=== PATIENT | female | born 1945 | race Caucasian/White ===

== ENCOUNTER 2016-10-04 12:42 | Observation (INO) | payer MEDICARE ==
[~2016-10-04] VITALS: Ht 152.4 cm; Wt 64.0 kg
[~2016-10-04 12:42] MED LIST: ALBUTEROL SUL0.083 % IN; ALPRAZOLAM1 MG PO; ASPIRIN EC81 MG PO; BACTRIM DS1 TAB PO; BENADRYL25 M1 PO; BENADRYL25 MG PO; CEPHALEXIN500 MG PO; CIPROFLOXACN500 MG PO; COMBIVENT RESPIMAT IN; DUONEB IN; ESTRACE0.5 MG PO; ESTRACE1 MG PO; FLEXERIL5 M1 PO; IMDUR60 MG PO; IMODIUM2 MG PO; IPRATROPIU0.5 MG/3 M NEB; ISOSORB MONO120 MG PO; ISOSORB MONO30 MG PO; ISOSORB MONO60 M1 PO; LACTATED RING1000 ML; LEVAQUIN750 MG PO; LEVOTHYROXIN100 MC1 PO; LEVOTHYROXIN75 MCG PO; LOVASTATIN10 M1 PO; LOVENOX100 MG/1 M SC; MEDDOSEPAK PO; NITROLINGUAL SPRAY D MT; OXY1; OXYCODONE15 MG PO; PREDNISONE10 MG PO; PROAIR HFA IN; RANITIDINE150 M1 PO; ROBITUSSIN AC10 ML PO; SIMVASTATIN20 MG PO; SYMBICORT1 AE1 IN; SYNTHROID100 MCG PO; SYNTHROID125 MCG PO; WARFARIN2.5 MG PO; XANAX1 MG PO; ZANTAC 150 PO; ZOLOFT100 MG PO; ZOLOFT50 MG PO; ZPAK PO
[2016-10-04 13:22] LABS: HEMOGLOBIN 11.5 g/dl (12.0-16.0); IMMATURE GRANULOCYTES 0.5 % (0.0-1.0); MEAN CELL VOLUME 97.6 fL CALC (80.0-100.0); MEAN CORPUSCULAR HGB 30.3 pG CALC (26.0-32.0); MEAN CORPUSCULAR HGB CONC 31.1 g/L CALC (32.0-36.0); NEUT# 3.52 thou/uL (2.00-7.15); RED BLOOD COUNT 3.79 mill/uL (4.20-5.60); RED CELL DISTRI WIDTH 14.9 % (11.5-15.5)
[2016-10-04 13:48] LABS: ALBUMIN 4.1 g/dL (3.2-5.0); ALKALINE PHOSPHATASE 88 u/l (38-126); ANION GAP 14 (6-22 (CALC)); BILIRUBIN, TOTAL 0.5 mg/dL (0.0-1.4); BUN 7 mg/dL (8-23); BUN/CREATININE RATIO 15 (12-20 (CALC)); CALCIUM 8.8 mg/dL (8.4-10.2); CARBON DIOXIDE 29 mmol/l (22-30); CHLORIDE 102 mmol/l (95-108); CREATININE 0.5 mg/dL (0.5-1.0); ETHYL ALCOHOL 0 mg/dl (0-30); GFR > 60 ML/MIN (>=60 (CALC)); GFR FOR AFR.AMER. > 60 ML/MIN (>=60 (CALC)); GLUCOSE 104 mg/dL (82-115); POTASSIUM 3.5 mmol/l (3.5-5.1); SGOT/AST 37 u/l (9-36); SGPT/ALT 23 u/l (11-66); SODIUM 142 mmol/l (137-146); TOTAL PROTEIN 7.3 g/dL (6.3-8.2)
[2016-10-04 13:59] LABS: MYOGLOBIN 33 ng/mL (0 - 62)
[2016-10-04 14:31] LABS: URINE BILIRUBIN - DIPSTICK NEGATIVE (NEGATIVE); URINE BLOOD DIPSTICK SMALL (NEGATIVE); URINE COLOR YELLOW; URINE GLUCOSE - DIPSTICK NEGATIVE (NEGATIVE); URINE KETONE NEGATIVE (NEGATIVE); URINE NITRITE - DIPSTICK NEGATIVE (Negative); URINE PH 5.5 (4.5-8.0); URINE PROTEIN - DIPSTICK NEGATIVE (NEG-TRACE); URINE UROBILINOGEN - DIPSTICK 0.2 E.U./dL (0.2)
[2016-10-04 14:40] LABS: URINE CLARITY CLOUDY; URINE LEUK ESTERASE LARGE (NEGATIVE)
[2016-10-04 14:42] LABS: COCAINE NEGATIVE (NEGATIVE); METHADONE NEGATIVE (NEGATIVE); TETRAHYDROCANNABIONOL NEGATIVE (NEGATIVE); URINE BACTERIA RARE hpf; URINE SQUAMOUS EPITHELIAL CELL FEW EPI/hpf (0-FEW); URINE WBC 20-50 WBC/hpf (0-5)
[2016-10-04 14:43] LABS: BARBITURATES NEGATIVE (NEGATIVE); OXCYCODONE POSITIVE (NEGATIVE); TRICYLIC ANTIDEPRESSANTS POSITIVE (NEGATIVE)
[2016-10-04 16:00] VITALS: BP 129/73
[2016-10-04 20:43] VITALS: BP 111/55
[2016-10-04 23:40] VITALS: BP 100/64
[2016-10-05 04:10] VITALS: BP 98/62
[2016-10-05 08:02] VITALS: BP 102/58
[2016-10-05 09:52] VITALS: BP 102/58
[2016-10-05] MEDS ORDERED: DUONEB NEB (10:31)
== END 2016-10-05 12:14 | disposition home or self-care (01) ==
LOC: ENPENDDIS → ED 12:42 → ED-I 14:54 → ED 15:17 → MS2 15:18
PROVIDERS: Emergency Medicine; ADMIT Internal Medicine; ATTEND Internal Medicine
DX: R41.82 Altered mental status, unspecified (principal); N39.0 Urinary tract infection, site not specified; T40.2X1A Poisoning by other opioids, accidental (unintentional), initial encounter; J44.9 Chronic obstructive pulmonary disease, unspecified; I48.0 Paroxysmal atrial fibrillation; G89.29 Other chronic pain; K58.9 Irritable bowel syndrome, unspecified; K21.9 Gastro-esophageal reflux disease without esophagitis; J96.10 Chronic respiratory failure, unspecified whether with hypoxia or hypercapnia; E03.9 Hypothyroidism, unspecified; I25.118 Atherosclerotic heart disease of native coronary artery with other forms of angina pectoris; F17.210 Nicotine dependence, cigarettes, uncomplicated; F41.9 Anxiety disorder, unspecified; I42.9 Cardiomyopathy, unspecified; Z91.81 History of falling; Z91.14 Patient's other noncompliance with medication regimen